=== PATIENT | female | born 1945 | race Caucasian/White ===

== ENCOUNTER 2018-04-12 16:21 | Emergency (ER) | payer OTHER ==
[2018-04-12 16:38] VITALS: BP 163/98; TEMP 98.1; BMI 41.1
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
== END 2018-04-12 19:13 | disposition home or self-care (01) ==
LOC: ED 16:21
DX: S76.911A Strain of unspecified muscles, fascia and tendons at thigh level, right thigh, initial encounter (principal); M25.561 Pain in right knee; Z96.651 Presence of right artificial knee joint; V89.2XXA Person injured in unspecified motor-vehicle accident, traffic, initial encounter
CPT/HCPCS: 96361; 99283

== ENCOUNTER 2018-09-06 10:48 | Outpatient (RCR) | END 2018-10-03 23:59 | PROVIDERS: ATTEND Orthopaedic Surgery | DX: S76.112D Strain of left quadriceps muscle, fascia and tendon, subsequent encounter (principal); M25.562 Pain in left knee; M25.662 Stiffness of left knee, not elsewhere classified ==